=== PATIENT | male | born 1995 | race Hispanic/Latino ===

== ENCOUNTER 2023-08-28 09:11 | Observation (INO) | payer OTHER, SELFPAY ==
[2023-08-28] MEDS ORDERED: Bupivacaine 0.25% HCL 30 ML VIAL ONE (10:05)
[2023-08-28] MEDS ORDERED: EPINEPHrine 1 MG/ML VIAL ONE (10:05)
[2023-08-28] MEDS ORDERED: fentaNYL PF 100 MCG/2 ML SYRINGE ONE (10:08)
[2023-08-28] MEDS ORDERED: PROPOFOL 40 ML ONE (10:08)
[2023-08-28] MEDS ORDERED: Rocuronium Bromide 10 MG/ML (10ML VIAL) ONE (10:09)
[2023-08-28] MEDS ORDERED: Lidocaine 1% PF 5 ML VIAL ONE (10:09)
[2023-08-28] MEDS ORDERED: Morphine 4 MG/ML VIAL SLOW IVP PRN (10:14)
[2023-08-28] MEDS ORDERED: HYDROcodone/Acetaminophen 10/325 mg Tablet PO PRN (10:14)
[2023-08-28] MEDS ORDERED: Dextrose 5% in Water 1,000 ML IV PRN (10:14)
[2023-08-28] MEDS ORDERED: Glucagon 1 MG/ML KIT IM PRN (10:14)
[2023-08-28] MEDS ORDERED: Ondansetron PF 4 MG/2 ML Vial IVP PRN (10:14)
[2023-08-28] MEDS ORDERED: hydrALAZINE 20 MG/ML VIAL SLOW IVP PRN (10:14)
[2023-08-28] MEDS ORDERED: Promethazine HCl 25 MG/ML VIAL IM PRN (10:14)
[2023-08-28] MEDS ORDERED: Dextrose 50% Abboject 50 ML SYRINGE SLOW IVP PRN (10:14)
[2023-08-28] MEDS ORDERED: SUGAMMADEX SODIUM 200 MG/2 ML VIAL ONE ×2 (11:05→11:07)
[2023-08-28] MEDS ORDERED: Ondansetron PF 4 MG/2 ML Vial ONE (11:05)
[2023-08-28] MEDS ORDERED: Piperacillin/Tazobactam 3.375 GM in Sodium Chloride 0.9% 100 ML IVPB SCH ×2 (11:15→14:15)
[2023-08-28] MEDS ORDERED: Piperacillin/Tazobactam 3.375 GM VIAL ONE (11:52)
[2023-08-28] MEDS ORDERED: Sodium Chloride 0.9% 100 ML ONE (11:53)
[2023-08-28] MEDS ORDERED: Ketorolac Tromethamine 30 MG (1 mL) VIAL ONE (11:55)
[2023-08-28] MEDS: Ketorolac Tromethamine 30 MG (1 mL) VIAL IVP SCH ×3 (11:59→23:49)
[2023-08-28] MEDS: Lactated Ringer's 1,000 ML IV SCH ×2 (12:00→20:17)
[2023-08-28 15:14] VITALS: BMI 34.7
[2023-08-28] MEDS: Piperacillin/Tazobactam 3.375 GM in Sodium Chloride 0.9% 100 ML IVPB SCH (17:47)
[2023-08-28] MEDS: Famotidine 20 MG TAB PO SCH (20:12)
[2023-08-28] MEDS: Famotidine/PF 20 mg/2ml Vial SLOW IVP SCH (20:17)
[2023-08-29] MEDS: Piperacillin/Tazobactam 3.375 GM in Sodium Chloride 0.9% 100 ML IVPB SCH ×2 (00:41→08:42)
[2023-08-29] MEDS: Ketorolac Tromethamine 30 MG (1 mL) VIAL IVP SCH ×2 (05:07→14:01)
[2023-08-29] MEDS: Lactated Ringer's 1,000 ML IV SCH (05:08)
[2023-08-29 07:46] LABS: #Eosinphils 0.1 thou/uL (0.0-0.7); #Monocytes 0.6 thou/uL (0.11-0.59); #Neutrophils 5.4 thou/uL (1.40-6.50); %Basophils 0.4 % (0.0-1.0); %Eosinophils 0.8 % (0.0-10.0); %Lymphocytes 20.5 % (21.0-51.0); %Monocytes 7.6 % (0.0-10.0); %Neutrophils 70.4 % (42.0-75.0); Hematocrit 38.3 % (42.0-52.0); Hemoglobin 12.2 g/dL (14.0-18.0); Mean Corpuscular HGB CONC 31.9 g/dL (32.0-36.0); Mean Corpuscular Hemoglobin 27.5 pg (27.0-31.0); Mean Corpuscular Volume 86.3 fl (78.0-98.0); Mean Platelet Volume 9.2 fL (7.4-10.4); Platelet Count 213 10x3/uL (130-400); RBC Distribution Width 13.5 % (11.5-14.5); Red Blood Cell (RBC) Count 4.44 mill/uL (4.70-6.10); White Blood Cell (WBC) Count 7.6 10x3/uL (4.8-10.8)
[2023-08-29 08:06] LABS: Anion Gap 10 mmol/L (10-20); BUN (Urea Nitrogen) 13 mg/dL (8.9-20.6); Calc. Creatinine Clearance 157 mL/min (70-130); Calcium 8.3 mg/dL (7.8-10.44); Carbon Dioxide 24 mmol/L (22-29); Chloride 107 mmol/L (98-107); Estimated GFR 84; Glucose 103 mg/dL (70-105); Potassium 3.2 mmol/L (3.5-5.1); Sodium 138 mmol/L (136-145)
[2023-08-29] MEDS: Famotidine 20 MG TAB PO SCH (08:42)
[2023-08-29] MEDS ORDERED: Potassium Chloride 20 MEQ TAB PO SCH (08:45)
[2023-08-29] MEDS: Famotidine/PF 20 mg/2ml Vial SLOW IVP SCH (10:11)
[2023-08-29] MEDS: metroNIDAZOLE 500 MG TAB PO SCH ×2 (10:36→14:02)
[2023-08-29 12:01] VITALS: BP 112/74; TEMP 97.9
[2023-08-29] MEDS ORDERED: Acetaminophen/Codeine 30-300mg Tablet PO PRN (12:59)
[2023-08-30] MEDS ORDERED: LevoFLOXacin 750 MG TAB PO SCH (06:00)
== END 2023-08-29 16:04 | disposition home or self-care (01) ==
LOC: SDC 09:11 → T4-B 14:31
PROVIDERS: ADMIT Surgery; ATTEND Surgery
PROC: 0DTJ4ZZ Resection of Appendix, Percutaneous Endoscopic Approach (ICD-10-PCS; principal; 2023-08-29)
DX: K35.80 Unspecified acute appendicitis (principal)
CPT/HCPCS: 36415; 80048; 85025; 88304; A4314; A4649; C1776; J0171; J1885; J2270; J2405; J2543; J2704; J3490; J7120; S0020